=== PATIENT | male | born 1990 | race Caucasian/White ===

== ENCOUNTER 2025-07-14 14:05 | Inpatient (IN) | payer MEDICAID ==
[~2025-07-14] VITALS: Ht 182.9 cm; Wt 62.3 kg
[2025-07-14 02:00] VITALS: RESP 19; O2SAT 99
[~2025-07-14 14:05] MED LIST: LEVE-21 PO; SIN10C PO
--- NOTE | 2025-07-14 14:36 | Physician Documentation ---
History of Present Illness ~ Chief Complaint: ETOH Withdrawl Stated Complaint: ALTERED Time Seen by MD: 14:12 Primary Medical Doctor: adrianna MARTINEZ 35-year-old male, history of alcohol abuse, who presents with altered mental status Per EMS, the patient arrives from home. His sister called because she was worried about him. When they found him he seemed confused. They thought maybe he was hallucinating. He has a history of alcohol abuse and has not had access to alcohol recently. He also has been reportedly out of his Keppra for 1 week. Here in the ED, the patient reports feeling generally weak and unwell. He denies having a headache, chest pain, shortness of breath, abdominal pain. He does not feel like he is withdrawing hard from alcohol. Unknown last drink. He has multiple wounds on his extremities. Medication Reconciliation Allergies: Coded Allergies: No Known Allergies (Unverified , 07/06/13) Scheduled Doxepin Hcl* (Sinequan*), 1 CAP PO HS, (Reported) Levetiracetam (Levetiracetam), 3 TAB PO BID, (Reported) Past Medical History Past Medical History: Seizures, Chronic Pain Past Surgical History: orthopedic surgeries Alcohol Use: Abuse Drug Use: marijuana Review of Systems Unable to obtain complete ROS: altered mental status Physical Exam Vital Signs: Temperature: 99.3, Source: Oral, Heart Rate: 94, Respiratory Rate: 16, BP: 117/71, Pulse Oximetry: 99, Weight: 62.300 Physical Exam General: This is a thin chronically ill-appearing young man HEENT: Atraumatic, oropharynx appears dry, he does have tongue fasciculations Heart: Regular rate and rhythm, normal-appearing peripheral perfusion Lungs: Clear breath sounds bilateral, normal work of breathing Abdomen: Soft, nondistended, nontender Extremities: Warm and well-perfused Neuro: Alert and oriented self and location, has trouble some history questions Psychiatric: He does have a resting tremor and tongue fasciculations, does not appear to be responding to internal stimuli currently Progress Results/Orders Results/Orders Orders - HERLINDA STOCKTON MD Hospitalist (07/14/25 17:44) Completed Orders - HERLINDA STOCKTON MD Ammonia (07/14/25 14:19) LA (07/14/25 14:19) Lipase (07/14/25 14:19) MG (07/14/25 14:19) Ethanol (07/14/25 14:19) Drug Screen, Urine (07/14/25 14:19) Cbc/Diff (07/14/25 14:19) CMP (07/14/25 14:19) Normal Saline 1000ml (0.9% Sodium Chlori (07/14/25 14:20) Chlordiazepoxide Capsule (Librium Capsul (07/14/25 14:20) Man Diff (07/14/25 14:29) Electrocardiogram (07/14/25 14:15) Diazepam Inj (Valium Inj) (07/14/25 17:30) Normal Saline 1000ml (0.9% Sodium Chlori (07/14/25 17:40) Vital Signs 07/14/25 07/14/25 07/14/25 07/14/25 02:00 14:11 14:51 14:56 Temp 99.3 Pulse 94 96 Resp 19 16 16 12 B/P (MAP) 117/71 124/68 (86) Pulse Ox 99 99 98 O2 Delivery Room Air 07/14/25 07/14/25 07/14/25 07/14/25 15:36 17:15 17:30 18:18 Pulse 94 84 Resp 14 15 20 14 B/P (MAP) 128/84 (99) 139/93 (108) Pulse Ox 99 100 07/14/25 07/14/25 18:33 19:07 Pulse 98 Resp 19 21 B/P (MAP) 100/68 (79) Pulse Ox 99 Laboratory Tests Test 07/14/25 14:29 White Blood Count 2.9 L Red Blood Count 2.77 L Hemoglobin 8.9 L Hematocrit 26.7 L Mean Corpuscular Volume 96.4 Mean Corpuscular Hemoglobin 32.1 H Mean Corpuscular Hemoglobin Concent 33.4 Red Cell Distribution Width 13.8 Platelet Count 100 L Mean Platelet Volume 7.9 Neutrophils (%) (Auto) 72.5 Lymphocytes (%) (Auto) 12.8 L Monocytes (%) (Auto) 14.4 H Eosinophils (%) (Auto) 0.1 Basophils (%) (Auto) 0.2 Neutrophils # (Auto) 2.1 Lymphocytes # (Auto) 0.4 L Monocytes # (Auto) 0.4 Eosinophils # (Auto) 0.0 Basophils # (Auto) 0.0 CBC Comment Differential Total Cells Counted 100 Neutrophils % (Manual) 73.0 Lymphocytes % (Manual) 12.0 L Monocytes % (Manual) 13.0 H Eosinophils % (Manual) 2.0 Platelet Estimate Decreased Red Blood Cell Morphology Perf Poikilocytosis Few Basophilic Stippling Macrocytosis 1+ Sodium Level 138 Potassium Level 3.3 L Chloride Level 106 Carbon Dioxide Level 26.3 Anion Gap 6 L Blood Urea Nitrogen 10 Creatinine 0.80 Estimated GFR/1.73 m2 > 90 BUN/Creatinine Ratio 12.5 Glucose Level 87 Lactic Acid Level 1.4 Calcium Level 8.2 L Magnesium Level 1.7 Total Bilirubin 2.6 H Aspartate Amino Transf (AST/SGOT) 71 H Alanine Aminotransferase (ALT/SGPT) 27 Alkaline Phosphatase 89 Ammonia 19 Total Protein 7.2 Albumin 2.7 L Globulin 4.5 H Albumin/Globulin Ratio 0.6 L Lipase 25 Chemistry Comments Ethyl Alcohol Level < 10 Medical Decision Making Differential Dx:Considerations: Include: dehydration, Delirium Tr., encephalopathy, postictal, drug overdose, encephalopathy, ETOH intoxication, medication toxicity, renal failure Additional Information The patient presents with reported altered mental status and weakness, with a possible history of alcohol withdrawal or other substance use. His alcohol level is negative and he does have symptoms consistent with alcohol withdrawal. He was given IV fluids, Librium and Valium. Urine drug screen is pending. He will require admission for further care. Departure Impression: Primary Impression: Alcohol withdrawal syndrome Referrals: NO PRIMARY CARE PROVIDER (PCP) Signature Scribe Signature: cheri Attestation: HERLINDA Randolph MD Jul 14, 2025 14:36
[2025-07-14 14:38] LABS: MEAN PLATELET VOLUME 7.9 FL (7.4-10.4); RED CELL DISTRIBUTION WIDTH 13.8 % (11.5-14.5)
--- NOTE | 2025-07-14 14:44 | ELECTROCARDIOGRAPH REPORT ---
[facility] Test Date: 2025-07-14 Test Time: 14:15:22 Pat Name: CHARLIE HOFFMAN Department: EMERGENCY ROOM Room: [place] [address] Gender: M Tax Professional: GERALDINE : 1990 Requested By: HERLINDA STOCKTON Order Number: [id number] Reading MD: Dr. Boo Arenas Measurements Intervals [place] Rate: 92 P: 92 PA: 138 QRS: 44 QRSD: 85 T: 69 QT: 371 QTc: 459 Interpretive Statements Pacemaker spikes or artifacts Sinus rhythm Abnormal R-wave progression, early transition Electronically Signed On 07-18-2025 19:21:[address] Boo Areans Please click the below link to view image of tracing.
[2025-07-14 14:54] LABS: EOSINOPHILS % (MANUAL) 2.0 % (0-6); LYMPHOCYTES % (MANUAL) 12.0 % (21-51); MONOCYTES % (MANUAL) 13.0 % (2-12); NEUTROPHILS % (MANUAL) 73.0 % (42-75); PLATELET ESTIMATE DECREASED
[2025-07-14 14:55] LABS: CREATININE 0.80 MG/DL (0.60-1.10); ETHANOL < 10 MG/DL (<10); TOTAL CARBON DIOXIDE 26.3 MMOL/L (24-32); eCRCL 111 ML/MIN; eGFR > 90 ML/MIN
[2025-07-14 14:58] LABS: LACTIC SEPSIS 1.4 MMOL/L (0.4-2.0)
[2025-07-14] MEDS: normal saline 1000ml 1,000 ML IV ONE ×2 (15:35→17:46)
[2025-07-14] MEDS: diazepam inj 5 MG/ML inj. IV ONE (17:30)
[2025-07-14] MEDS ORDERED: diazepam inj 5 MG/ML inj. IV PRN ×4 (19:00→20:10)
[2025-07-14] MEDS ORDERED: ondansetron/PF 4mg/2ml inj IV PRN ×3 (19:00→20:10)
[2025-07-14] MEDS ORDERED: magnesium Cl slow-release 64mg tablet PO PRN (19:10)
[2025-07-14] MEDS ORDERED: potassium Cl 40MEQ/1/2NS 520ml 520 ML IV PRN (19:10)
[2025-07-14] MEDS ORDERED: mag hydrox/Alum hydrox/simeth 30ml oral suspension PO PRN (19:10)
[2025-07-14] MEDS ORDERED: magnesium sulf-water 4G/100mL 100 ML IV PRN (19:10)
[2025-07-14] MEDS ORDERED: magnesium sulf-water 2g/50mL 50 ML IV PRN (19:10)
[2025-07-14] MEDS ORDERED: potassium Cl 20 mEq SR tablet PO PRN (19:10)
[2025-07-14] MEDS ORDERED: magnesium hydroxide 30ml (MOM) UD suspension PO PRN (19:10)
[2025-07-14] MEDS ORDERED: HYDROcodone/acetaminophen 5mg/325mg tablet PO PRN (19:10)
[2025-07-14] MEDS: diazepam inj 5 MG/ML inj. IV PRN (19:38)
[2025-07-14] MEDS ORDERED: MIDAZolam 5mg/ml 2ml vial IM ONE (20:00)
[2025-07-14] MEDS: docusate sod 100mg capsule PO SCH (20:00)
[2025-07-14] MEDS: K and/or MAG REPLACEMENT MC SCH (20:00)
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
[2025-07-14] MEDS: normal saline 1000ml 1,000 ML IV SCH (20:10)
[2025-07-14] MEDS ORDERED: ondansetron 4mg rapidly disintigrating tab PO PRN (20:10)
[2025-07-14] MEDS: MIDAZolam 5mg/ml 2ml vial IV ONE (20:10)
[2025-07-14] MEDS ORDERED: thiamine 100mg/ml 2ml inj. IV SCH (21:00)
[2025-07-14] MEDS ORDERED: morphine 4 MG/ML inj SYRINge IV PRN (21:24)
[2025-07-14] MEDS: thiamine 100mg/ml 2ml inj. IV SCH (21:42)
[2025-07-15] VITALS (10 sets, daily range): BP systolic 121–141; BP diastolic 54–83; PULSE 70–83; RESP 14–19; TEMP 96.8–99.9; O2SAT 97–100
[2025-07-15] MEDS ORDERED: PHENOBARBITAL SODIUM 65 MG/ML IV PRN (01:31)
[2025-07-15] MEDS: morphine 4 MG/ML inj SYRINge IV PRN (02:49)
[2025-07-15 05:40] LABS: LEUKOCYTE ESTERASE ,URINE NEGATIVE (Neg); OCCULT BLOOD,URINE LARGE (Neg)
[2025-07-15 05:45] LABS: UA COLLECTION TYPE NON-SPECIFIED
[2025-07-15 05:46] LABS: NITRITES, URINE NEGATIVE (Neg); SQUAMOUS EPITHELIAL CELL,UR NONE SEEN /LPF (FEW)
[2025-07-15 06:04] LABS: URINE AMPHETAMINE SCREEN NEGATIVE (Neg); URINE BARBITUATE SCREEN POSITIVE (Neg); URINE BENZODIAZEPINES SCREEN POSITIVE (Neg); URINE CANNABINOID SCREEN POSITIVE (Neg); URINE COCAINE SCREEN NEGATIVE (Neg); URINE METHADONE SCREEN NEGATIVE (Neg); URINE OPIATE SCREEN NEGATIVE (Neg); URINE PHENCYCLIDINE SCREEN NEGATIVE (Neg)
[2025-07-15] MEDS: folic acid 1mg/0.2ml inj IV SCH (07:42)
[2025-07-15 07:59] LABS: MEAN PLATELET VOLUME 8.0 FL (7.4-10.4); RED CELL DISTRIBUTION WIDTH 13.9 % (11.5-14.5)
[2025-07-15] MEDS ORDERED: folic acid 1mg/0.2ml inj IV SCH (08:00)
[2025-07-15] MEDS: diazepam inj 5 MG/ML inj. IV PRN (08:27)
[2025-07-15 09:03] LABS: EOSINOPHILS % (MANUAL) 2.0 % (0-6); LYMPHOCYTES % (MANUAL) 19.0 % (21-51); MONOCYTES % (MANUAL) 15.0 % (2-12); NEUTROPHILS % (MANUAL) 64.0 % (42-75); PLATELET ESTIMATE DECREASED
[2025-07-15 09:46] LABS: MEAN PLATELET VOLUME 8.7 FL (7.4-10.4); RED CELL DISTRIBUTION WIDTH 14.1 % (11.5-14.5)
[2025-07-15 10:01] LABS: CREATININE 0.44 MG/DL (0.60-1.10); TOTAL CARBON DIOXIDE 22.7 MMOL/L (24-32); eCRCL 203 ML/MIN; eGFR > 90 ML/MIN
[2025-07-15 10:09] LABS: EOSINOPHILS % (MANUAL) 2.0 % (0-6); LYMPHOCYTES % (MANUAL) 19.0 % (21-51); MONOCYTES % (MANUAL) 14.0 % (2-12); NEUTROPHILS % (MANUAL) 65.0 % (42-75); PLATELET ESTIMATE DECREASED
[2025-07-15] MEDS: potassium Cl 20 mEq SR tablet PO PRN (11:38)
--- NOTE | 2025-07-15 18:21 | CARDIOLOGY REPORT ---
APPROVED REPORT EXAM: Comprehensive 2D, Doppler, and color-flow Echocardiogram. Patient Location: 3018 A Heart Rate: 70's bpm Rhythm: SINUS Indications CARDIOMYOPATHY ETOH SEVERE ALCOHOL WITHDRAWL Meal Packer: NONE Previous echo: NONE 2D Dimensions RVDd 3.6 cm LVDd 4.9 cm LVOT Diameter 2.19 (1.8-2.4cm) M-Mode Dimensions Left Atrium(MM) 4.16 (2.5-4.0cm) Aortic Root 3.57 (2.2-3.7cm) Aortic Valve AoV Peak Amor. 145.0 cm/s AoV VTI 29.2 cm AO Peak GR. 8.4 mmHg AO Mean GR. 4 mmHg LVOT VTI 21.30 cm LVOT Peak Amor. 114.0 cm/s CORINNE(VTI)/BSA 2.74 cm2/m2 CORINNE (VTI) 2.74 cm2 Mitral Valve MV E Velocity 91.4 cm/s MV Peak Gr. 4 mmHg MV DECEL TIME 224 ms MV A Velocity 70.4 cm/s MV PHT 56 ms E/A Ratio 1.3 MVA (PHT) 3.93 cm2 MV VMax 105.7 cm/s TDI Lateral E' P. V 12.05 cm/s E/Lateral E' 7.6 Tricuspid Valve TR P. Velocity 203 cm/s RAP ESTIMATE 10 mmHg TR Peak Gr. 16 mmHg RVSP 26 mmHg LEFT VENTRICLE Normal LV size and wall thickness. Overall systolic function is normal. LVEF is 60-65%. RIGHT VENTRICLE RV is mildly dilated with normal function. ATRIA Left atrium is mildly dilated. AORTIC VALVE Trileaflet AV appears normal without stenosis. No insufficiency. MITRAL VALVE Mild MV annular calcification without stenosis. Trace regurgitation. TRICUSPID VALVE TV appears structurally normal with trace regurgitation. PULMONIC VALVE Pulmonic valve is not well visualized. GREAT VESSELS The aortic root is normal in size. PERICARDIUM Normal pericardium. No effusion. Other Information Study Quality: Adequate but difficult due to patient unresponsive, supine, and poor imaging windows Conclusion Normal LV size and wall thickness. Overall systolic function is normal. LVEF is 60-65%. RV is mildly dilated with normal function. Left atrium is mildly dilated. Trileaflet AV appears normal without stenosis. No insufficiency. Mild MV annular calcification without stenosis. Trace regurgitation. TV appears structurally normal with trace regurgitation. Normal pericardium. No effusion.
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
[2025-07-15] MEDS: HYDROcodone/acetaminophen 10/325mg tab PO PRN (23:01)
[2025-07-16] VITALS (7 sets, daily range): BP systolic 101–137; BP diastolic 56–83; PULSE 77–82; RESP 11–19; TEMP 96.6–97.3; O2SAT 94–100
[2025-07-16] MEDS ORDERED: METH-603 PO (00:17)
[2025-07-16] MEDS ORDERED: LEVO-65 PO (00:21)
[2025-07-16 06:33] LABS: MEAN PLATELET VOLUME 8.0 FL (7.4-10.4); RED CELL DISTRIBUTION WIDTH 14.0 % (11.5-14.5)
[2025-07-16 06:55] LABS: CREATININE 0.47 MG/DL (0.60-1.10); TOTAL CARBON DIOXIDE 23.1 MMOL/L (24-32); eCRCL 190 ML/MIN; eGFR > 90 ML/MIN
[2025-07-16 07:14] LABS: LYMPHOCYTES % (MANUAL) 20.0 % (21-51); MONOCYTES % (MANUAL) 10.0 % (2-12); NEUTROPHILS % (MANUAL) 70.0 % (42-75); PLATELET ESTIMATE DECREASED
--- NOTE | 2025-07-16 09:06 | RADIOLOGY REPORT ---
INDICATION: history of cirohsis TECHNIQUE: Multiple real-time sonographic images of the abdomen were obtained. COMPARISON: None FINDINGS: The liver is heterogeneous in echogenicity. The liver measures 16cm. No intrahepatic biliary ductal dilatation is noted. The gallbladder wall measures 0.2 cm and is unremarkable. No gallstones or sludge is seen. The common duct measures 0.5 cm and is unremarkable. No pericholecystic fluid is noted. The right kidney measures 11cm. No hydronephrosis. The pancreas is not well visualized due to obscuration from bowel gas. The visualized portions of the IVC and aorta are grossly unremarkable. IMPRESSION: Hepatic cirrhosis with small volume ascites.
--- NOTE | 2025-07-16 10:17 | RADIOLOGY REPORT ---
CHEST RADIOGRAPH Indication: rule out aspiration Technique: Single frontal view of the chest was obtained Comparison: None FINDINGS: Lines and Tubes: None Lungs: No focal consolidation. Pleura: No effusion. No pneumothorax. Cardiomediastinal contours: Unremarkable Bones: No acute osseous abnormality. IMPRESSION: No acute cardiopulmonary disease.
[2025-07-16 11:58] LABS: APTT 27 SECONDS (22-32); INR 1.4 INR
--- NOTE | 2025-07-16 12:17 | RADIOLOGY REPORT ---
Indication: patient has cirhosis Technique: CT axial images of the abdomen and pelvis are obtained without contrast. Coronal and sagittal reformats were obtained. Radiation Dose Information: CTDI volume is 8 mGy. Dose-length product is 459 mGy*cm Comparison: None FINDINGS: There is limited interpretation of the abdomen and pelvis without administration of intravenous contrast. Small bilateral pleural effusions. Bibasilar atelectasis. Adrenal glands unremarkable in shape. Spleen is enlarged measuring 16 cm AP. Pancreas unremarkable in shape. Cirrhotic morphology liver. Cholelithiasis. Heterogeneous appearance of the liver. Kidneys demonstrate no hydronephrosis. Stomach partially distended. Small bowel loops are normal in caliber. Moderate volume stool throughout the colon. Bowel wall edema and thickening of the ascending colon, hepatic flexure. No secondary signs for appendicitis. Numerous pericaval, gastro renal varices, perisplenic varices. Bladder is decompressed by Gandhi catheter. Moderate volume ascites fluid. Mesenteric edema. Presacral edema. Soft tissue edema / anasarca. No aggressive osseous process. Old bilateral rib fractures.. Ecos-ho-whugwtyi thoracic degenerative disc disease. Heterotopic mineralization in the proximal right thigh region. IMPRESSION: Limited evaluation without contrast. Cirrhotic morphology liver with sequela of portal hypertension including splenomegaly, moderate volume ascites, extensive portosystemic collateralization. Heterogeneous appearance of the liver. Can not exclude infiltrative HCC /hilar lesions. Recommend multiphasic MRI abdomen with and without contrast and correlation with alpha fetoprotein levels. Bowel wall thickening and edema of the ascending colon which can be secondary to portal hypertension related enteropathy, colitis, inflammatory disease. Small bilateral pleural effusions. Cholelithiasis. Other findings as described.
--- NOTE | 2025-07-16 13:06 | PROGRESS NOTE- Residence ---
Progress Note - Resident Providers to CC Resident Creating Document: LEONIDAS LEWIS RES CC: PEDRO PABLO BANKS MD ~ Antibiotic Timeout Antibiotic Ordered?: No Subjective Patient was seen and examined on bedside, he is now alert and oriented to time place and person, and is normally eating , reports that he is feeling better. Objective Vital Signs Date Time Temp Pulse Resp B/P (MAP) Pulse Ox O2 Delivery O2 Flow Rate FiO2 07/16/25 11:00 96.6 82 13 104/64 (77) 94 07/16/25 08:00 Room Air Result Diagram: 07/16/25 0607/16/25 06 General: Patient is alert, oritentated to time place and person. GCS: 15/15 HEENT: Conjunctive are pink, sclerae clear, no icterus, pupil is equal in both sides, reactive to light, no ear discharge, no pharyngeal erythema or an edema.abrasion noted in left eyebrow and and left zygomatic area Neck: Supple, no JVD, no lymphadenopathy and thyromegaly. Chest: Equal air entry on both lungs, no added sounds, no wheeze. Cardiovascular: S1-S2 regular sinus rhythm and, regular rate, no gallops, no rubs, no murmurs Abdomen: Bowel sounds present on auscultation, soft, nontender, no guarding, no rigidity Extremities: Multiple abrasion in bilateral lower extremities, and upper extremities. The abrasions look healthy, healing. No pus/no other discharge. Neuro: No focal weaknesenders in the upper and lower limb muscles, power of the muscles 5/5 bilateral upper and lower extremities, normal reflexes bilaterally. Cranial nerves intact Musculoskeletal: No joint deformitites and backtenderness Skin: Warm and dry. Coagulation Studies Laboratory Tests Test 07/16/25 11:28 Prothrombin Time 13.9 SECONDS (9.0-12.0) H INR International Normalized Ratio 1.4 INR Activated Partial Thromboplast Time 27 SECONDS (22-32) Coagulation Comments Plan Plan Patient presented here with severe alcohol withdrawl, admitted for management of alcohol withdrawl. Severe Alcohol Withdrawl CIWA score of 1 Ethyl alcohol level < 10 Received 1 dose of phenobarbital 260 mg IV push in the ER along with chlordiazepoxide 25 mg p.o. once and diazepam 2 mg IV once. Patient on librium capsule 25 mg Q6H PO Patient is on severe alcohol withdrawal protocol Dced Phenobarbital 260 mg IV push q.1h p.r.n changed it to 130 mg IV q1h prn Patient will require frequent dosing of phenobarbital/Valium/Ativan to prevent seizure He received 2 L bolus IV normal saline in the ER. Hydration with 100 mL/hour in his in view of soft blood pressure Urinalysis shows large occult blood and urine tox positive for fentanyl, on fall risk and aspiration precautions. Patient was on foleys yestraday because he was retaining urine, bladder scan showed around 600 ml, dced foleys as he is able to void by himself. Social service and substance use navigator ordered. Suicidal Ideation Continue 1798 [facility] need to assess patient. Pancytopenia most likely due to alcohol use disorder WBC 2.2, hemoglobin 9.1, platelet count trending downward 79 Ordered type and cross matching. Blood transfusion if hemoglobin falls below 7. Keep an on eye CBC. Chronic Liver Disease/Cirhosis Ct Abdomen and Pelvis shows: Cirrhotic morphology liver with sequela of portal hypertension including splenomegaly, moderate volume ascites, extensive portosystemic collateralization. Heterogeneous appearance of the liver. Can not exclude infiltrative HCC /hilar lesions. Recommend multiphasic MRI abdomen with and without contrast and correlation with alpha fetoprotein levels. Bowel wall thickening and edema of the ascending colon which can be secondary to portal hypertension related enteropathy, colitis, inflammatory disease. Small bilateral pleural effusions. Cholelithiasis. Continue to monitor liver function ,and check for hemetemesis or melena. Hypokalemia Resolved Potassium 3.5 Code status: Full code DVT prophylaxis: SCDs Analgesia/sedation: Morphine/[place] p.r.n. Line/tube: PIV GI prophylaxis: Protonix Nutrition: Regular Diet PT: Ordered. Disposition: Admit to PCU/telemetry. Frequent dosing of phenobarbital/Valium/Ativan to prevent seizures. [address], needs to renewed daily until [facility] clears. Patient is medically cleared for [facility] Evaluation for 515 Hold. Leonidas Lewis PGY1 Internal Medicine Resident Addendum: Patient is a 35-year-old male admitted for severe alcohol withdrawal, currently on the alcohol withdrawal protocol. Has been requiring less sedative medications and he is fall awake and alert now. He had the CT of the abdomen done shows cirrhotic liver with portal hypertension and splenomegaly. He also has moderate volume ascites with extensive portosystemic collateralization. Unable to exclude HCC/hilar lesions. If he will benefit from outpatient follow up for workup of possible malignancy with the AFP and MRI/PET scan. He was also retaining room urine and had the Gandhi placed. We will discontinue Gandhi catheter today and monitor if he is able to void by himself. He is cleared medical, awaiting mental health eval. Renewed 1799 hold. Tammy Kim MD IM resident, PGY 3 Date of Service: Jul 16, 2025 Billing Provider: PEDRO PABLO BANKS MD, SANJAY, RES Jul 16, 2025 13:06 TAMMY KIM, RES Jul 17, 2025 08:06
[2025-07-17] VITALS (7 sets, daily range): BP systolic 100–151; BP diastolic 56–89; PULSE 87–105; RESP 11–20; TEMP 97.3–99.3; O2SAT 98–100
[2025-07-17 06:05] LABS: MEAN PLATELET VOLUME 8.4 FL (7.4-10.4); RED CELL DISTRIBUTION WIDTH 13.5 % (11.5-14.5)
[2025-07-17 06:32] LABS: CREATININE 0.55 MG/DL (0.60-1.10); TOTAL CARBON DIOXIDE 23.9 MMOL/L (24-32); eCRCL 162 ML/MIN; eGFR > 90 ML/MIN
[2025-07-17 08:18] LABS: LYMPHOCYTES % (MANUAL) 12.0 % (21-51); MONOCYTES % (MANUAL) 10.0 % (2-12); NEUTROPHILS % (MANUAL) 78.0 % (42-75); PLATELET ESTIMATE DECREASED
[2025-07-17 12:16] LABS: LEUKOCYTE ESTERASE ,URINE NEGATIVE (Neg); NITRITES, URINE POSITIVE (Neg); OCCULT BLOOD,URINE SMALL (Neg); UA COLLECTION TYPE NON-SPECIFIED
[2025-07-17 12:25] LABS: SQUAMOUS EPITHELIAL CELL,UR NONE SEEN /LPF (FEW)
--- NOTE | 2025-07-17 21:01 | PROGRESS NOTE- Residence ---
Progress Note - Resident Providers to CC Resident Creating Document: MELISSA BHARDWAJ RES CC: PEDRO PABLO BANKS MD ~ Antibiotic Timeout Antibiotic Ordered?: No MRSA Education MRSA Education Provided to pt: No Subjective Patient was seen and examined on bedside, he is now alert and oriented to time place and person, and is normally eating , reports that he is feeling better. He says that he is much better since admission Objective Vital Signs Date Time Temp Pulse Resp B/P (MAP) Pulse Ox O2 Delivery O2 Flow Rate FiO2 07/17/25 19:50 20 07/17/25 18:30 103 07/17/25 15:00 97.7 151/89 (109) 98 Room Air Result Diagram: 07/17/25 0544 07/17/25 0544 General: Patient is alert, oritentated to time place and person. GCS: 15/15 HEENT: Conjunctive are pink, sclerae clear, no icterus, pupil is equal in both sides, reactive to light, no ear discharge, no pharyngeal erythema or an edema.abrasion noted in left eyebrow and and left zygomatic area Neck: Supple, no JVD, no lymphadenopathy and thyromegaly. Chest: Equal air entry on both lungs, no added sounds, no wheeze. Cardiovascular: S1-S2 regular sinus rhythm and, regular rate, no gallops, no rubs, no murmurs Abdomen: Bowel sounds present on auscultation, soft, nontender, no guarding, no rigidity Extremities: Multiple abrasion in bilateral lower extremities, and upper extremities. The abrasions look healthy, healing. No pus/no other discharge. Neuro: No focal weaknesenders in the upper and lower limb muscles, power of the muscles 5/5 bilateral upper and lower extremities, normal reflexes bilaterally. Cranial nerves intact Musculoskeletal: No joint deformitites and backtenderness Skin: Warm and dry. Coagulation Studies Laboratory Tests Test 07/16/25 11:28 Prothrombin Time 13.9 SECONDS (9.0-12.0) H INR International Normalized Ratio 1.4 INR Activated Partial Thromboplast Time 27 SECONDS (22-32) Coagulation Comments Plan Plan Patient presented here with severe alcohol withdrawl, admitted for management of alcohol withdrawl. Severe Alcohol Withdrawl CIWA score of 1 Ethyl alcohol level < 10 Received 1 dose of phenobarbital 260 mg IV push in the ER along with chlordiazepoxide 25 mg p.o. once and diazepam 2 mg IV once. Patient on librium capsule 25 mg Q6H PO Patient is on severe alcohol withdrawal protocol Dced Phenobarbital 260 mg IV push q.1h p.r.n changed it to 130 mg IV q1h prn Patient will require frequent dosing of phenobarbital/Valium/Ativan to prevent seizure He received 2 L bolus IV normal saline in the ER. Hydration with 100 mL/hour in his in view of soft blood pressure Urinalysis shows large occult blood and urine tox positive for fentanyl, on fall risk and aspiration precautions. Patient was on foleys yestraday because he was retaining urine, bladder scan showed around 600 ml, dced foleys as he is able to void by himself. Social service and substance use navigator ordered. Suicidal Ideation Continue 1798, [facility] need to assess patient. Pancytopenia most likely due to alcohol use disorder WBC 2.7 , hemoglobin 10.2, platelet count trending upward 90 Ordered type and cross matching. Blood transfusion if hemoglobin falls below 7. Keep an on eye CBC. Chronic Liver Disease/Cirhosis Ct Abdomen and Pelvis shows: Cirrhotic morphology liver with sequela of portal hypertension including splenomegaly, moderate volume ascites, extensive portosystemic collateralization. Heterogeneous appearance of the liver. Can not exclude infiltrative HCC /hilar lesions. Recommend multiphasic MRI abdomen with and without contrast and correlation with alpha fetoprotein levels. Bowel wall thickening and edema of the ascending colon which can be secondary to portal hypertension related enteropathy, colitis, inflammatory disease. Small bilateral pleural effusions. Cholelithiasis. Continue to monitor liver function ,and check for hemetemesis or melena. Hep Bsag awaiting, follow up with that Hypokalemia Resolved Potassium 3.5 Code status: Full code DVT prophylaxis: SCDs Analgesia/sedation: Morphine/[place] p.r.n. Line/tube: PIV GI prophylaxis: Protonix Nutrition: Regular Diet PT: Ordered. Disposition: Admit to PCU/telemetry. Frequent dosing of phenobarbital/Valium/Ativan to prevent seizures. [address], needs to renewed daily until [facility] clears. Patient is medically cleared for [facility] Evaluation for 5151 Hold. Melissa Bhardwaj PGY1 Internal Medicine Resident Date of Service: Jul 17, 2025 Billing Provider: PEDRO PABLO BANKS MD, SANJAY, RES Jul 17, 2025 21:01
[2025-07-18] VITALS (7 sets, daily range): BP systolic 104–149; BP diastolic 52–87; PULSE 67–102; RESP 11–18; TEMP 97.2–97.9; O2SAT 95–99
[2025-07-18 06:47] LABS: MEAN PLATELET VOLUME 8.2 FL (7.4-10.4); RED CELL DISTRIBUTION WIDTH 14.3 % (11.5-14.5)
[2025-07-18 06:51] LABS: CREATININE 0.51 MG/DL (0.60-1.10); TOTAL CARBON DIOXIDE 24.3 MMOL/L (24-32); eCRCL 175 ML/MIN; eGFR > 90 ML/MIN
[2025-07-18] MEDS: pantoprazole 40mg Tablet.DR PO SCH (08:19)
[2025-07-18] MEDS ORDERED: magnesium sulf-water 2g/50mL 50 ML IV PRN (12:25)
[2025-07-18] MEDS ORDERED: potassium Cl 40MEQ/1/2NS 520ml 520 ML IV PRN (12:25)
[2025-07-18] MEDS ORDERED: magnesium sulf-water 4G/100mL 100 ML IV PRN (12:25)
[2025-07-18] MEDS ORDERED: potassium Cl 20 mEq SR tablet PO PRN ×2 (12:25)
[2025-07-18] MEDS: magnesium Cl slow-release 64mg tablet PO PRN (12:38)
[2025-07-18] MEDS: multivitamins, therapeutics tablet PO SCH (12:49)
[2025-07-18] MEDS: lactose-reduced food (Ensure Enlive) - 237ml bottle PO SCH (13:00)
[2025-07-18] MEDS: K and/or MAG REPLACEMENT MC SCH (20:00)
--- NOTE | 2025-07-18 20:32 | PROGRESS NOTE- Residence ---
Progress Note - Resident Providers to CC Resident Creating Document: LEONIDAS BHARDWAJ RES CC: PEDRO PABLO BANKS MD ~ Antibiotic Timeout Antibiotic Ordered?: No Subjective Patient was seen and examined on bedside, he is now alert and oriented to time place and person, and is normally eating , reports that he is feeling better. He said that he is much better he also mentions that he is homeless. Objective Vital Signs Date Time Temp Pulse Resp B/P (MAP) Pulse Ox O2 Delivery O2 Flow Rate FiO2 07/18/25 20:22 18 07/18/25 18:00 89 07/18/25 15:00 97.3 149/87 (107) 99 Room Air Result Diagram: 07/18/2562007/18/25 06 General: Patient is alert, oritentated to time place and person. GCS: 15/15 HEENT: Conjunctive are pink, sclerae clear, no icterus, pupil is equal in both sides, reactive to light, no ear discharge, no pharyngeal erythema or an edema.abrasion noted in left eyebrow and and left zygomatic area Neck: Supple, no JVD, no lymphadenopathy and thyromegaly. Chest: Equal air entry on both lungs, no added sounds, no wheeze. Cardiovascular: S1-S2 regular sinus rhythm and, regular rate, no gallops, no rubs, no murmurs Abdomen: Bowel sounds present on auscultation, soft, nontender, no guarding, no rigidity Extremities: Multiple abrasion in bilateral lower extremities, and upper extremities. The abrasions healing. No pus/no other discharge. Neuro: No focal weaknesenders in the upper and lower limb muscles, power of the muscles 5/5 bilateral upper and lower extremities, normal reflexes bilaterally. Cranial nerves intact Musculoskeletal: No joint deformitites and backtenderness Skin: Warm and dry. Coagulation Studies Laboratory Tests Test 07/16/25 11:28 Prothrombin Time 13.9 SECONDS (9.0-12.0) H INR International Normalized Ratio 1.4 INR Activated Partial Thromboplast Time 27 SECONDS (22-32) Coagulation Comments Plan Plan Patient presented here with severe alcohol withdrawl, admitted for management of alcohol withdrawl. Severe Alcohol Withdrawl CIWA score of 1 Ethyl alcohol level < 10 Received 1 dose of phenobarbital 260 mg IV push in the ER along with chlordiazepoxide 25 mg p.o. once and diazepam 2 mg IV once. Patient on librium capsule 25 mg Q6H PO, reduced it to 25 mg b.i.d as patient was sleepy. Patient is on severe alcohol withdrawal protocol Dced Phenobarbital 260 mg IV push q.1h p.r.n changed it to 130 mg IV q1h prn Patient will require frequent dosing of phenobarbital/Valium/Ativan to prevent seizure He received 2 L bolus IV normal saline in the ER. Hydration with 100 mL/hour in his in view of soft blood pressure Urinalysis shows large occult blood and urine tox positive for fentanyl, on fall risk and aspiration precautions. Patient was on foleys yestraday because he was retaining urine, bladder scan showed around 600 ml, dced foleys as he is able to void by himself. Started patient on D5W half NS ,ensure t.i.d multivitamin and thiamine p.o. Social service and substance use navigator ordered. Suicidal Ideation Continue 1798, [facility] need to assess patient. Pancytopenia most likely due to alcohol use disorder WBC 3.6 , hemoglobin 9.2, hct 27.3 platelet count trending upward 90 Ordered type and cross matching. Blood transfusion if hemoglobin falls below 7. Keep an on eye CBC. Asymptomatic UTI Patient denies any urinary symptoms Urine culture positive for Gram-negative lluvia possibly due to recent Gandhi's Today patient was retaining urine and then voided by himself Chronic Liver Disease/Cirhosis Ct Abdomen and Pelvis shows: Cirrhotic morphology liver with sequela of portal hypertension including splenomegaly, moderate volume ascites, extensive portosystemic collateralization. Heterogeneous appearance of the liver. Can not exclude infiltrative HCC /hilar lesions. Recommend multiphasic MRI abdomen with and without contrast and correlation with alpha fetoprotein levels. Bowel wall thickening and edema of the ascending colon which can be secondary to portal hypertension related enteropathy, colitis, inflammatory disease. Small bilateral pleural effusions. Cholelithiasis. Continue to monitor liver function ,and check for hemetemesis or melena. Hep Bsag awaiting, follow up with that Hypokalemia Resolved Code status: Full code DVT prophylaxis: SCDs Analgesia/sedation: Morphine/[place] p.r.n. Line/tube: PIV GI prophylaxis: Protonix Nutrition: Regular Diet PT: Ordered. Disposition: Admit to PCU/telemetry. Frequent dosing of phenobarbital/Valium/Ativan to prevent seizures. [address], needs to renewed daily until [facility] clears. Patient is medically cleared for [facility] Evaluation for 5151 Hold. Leonidas Bhardwaj PGY1 Internal Medicine Resident Date of Service: Jul 18, 2025 Billing Provider: PEDRO PABLO BANKS MD, SANJAY, RES Jul 18, 2025 20:32
[2025-07-19 05:48] VITALS: BP 114/68; PULSE 87; RESP 20; TEMP 97.9; O2SAT 96
[2025-07-19 06:21] LABS: MEAN PLATELET VOLUME 8.3 FL (7.4-10.4); RED CELL DISTRIBUTION WIDTH 13.9 % (11.5-14.5)
[2025-07-19 06:28] LABS: CREATININE 0.47 MG/DL (0.60-1.10); TOTAL CARBON DIOXIDE 23.8 MMOL/L (24-32); eCRCL 190 ML/MIN; eGFR > 90 ML/MIN
[2025-07-19 07:17] LABS: HBSAG SCREEN Negative (Negative)
[2025-07-19] MEDS ORDERED: CHLO25CA10 PO (12:19)
[2025-07-19] MEDS ORDERED: FOLI1TAB27 PO (12:19)
[2025-07-19] MEDS ORDERED: LACT1CAP26 PO (12:19)
[2025-07-19] MEDS ORDERED: LEVO-65 PO (12:19)
[2025-07-19] MEDS ORDERED: thiamine tablet PO (12:19)
[2025-07-19] MEDS ORDERED: MULT-25 PO (12:19)
[2025-07-19 16:28] VITALS: RESP 15
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
== END 2025-07-19 18:01 | disposition home or self-care (01) | DRG 425 ==
LOC: ER 14:06 → ED HOLD 19:13 → EDBEDREQ 20:34 → PCU 3S 23:20
PROVIDERS: ADMIT Internal Medicine; ATTEND Family Medicine
DX: E87.6 Hypokalemia (principal); D61.818 Other pancytopenia; K74.60 Unspecified cirrhosis of liver; F10.239 Alcohol dependence with withdrawal, unspecified; K76.6 Portal hypertension; K76.89 Other specified diseases of liver; N39.0 Urinary tract infection, site not specified; R45.851 Suicidal ideations; K80.20 Calculus of gallbladder without cholecystitis without obstruction; R16.1 Splenomegaly, not elsewhere classified; Z79.899 Other long term (current) drug therapy
CPT/HCPCS: 36415; 71045; 74176; 76700; 80053; 80305; 80320; 81001; 82140; 82948; 83605; 83690; 83735; 85007; 85025; 85610; 85730; 87077; 87081; 87088; 87186; 87340; 93005; 93306; 96361; 96374; 96375; 97110; 97116; 97162; 97530; 99285; A4314; A4338; A6213; A6590; C1758; G0378; J2060; J2250; J2270; J2470; J2560; J3360; J3411; J3490; J7030; J7040

== ENCOUNTER 2025-09-28 13:51 | Emergency (ER) | payer MEDICAID ==
[~2025-09-28] VITALS: Ht 170.2 cm; Wt 75.3 kg
[~2025-09-28 13:51] MED LIST changes: +CHLO25CA10 PO; +FOLI1TAB27 PO; +LACT1CAP26 PO; +LEVO-65 PO; +METH-603 PO; +MULT-25 PO; +thiamine tablet PO
--- NOTE | 2025-09-28 14:43 | RADIOLOGY REPORT ---
DI KNEE, COMP 4 VW MIN, INDICATION: KNEE PAIN TECHNICAL DATA: Frontal , oblique and lateral views were obtained of the left knee. COMPARISON: None FINDINGS: Distal tibia hardware appears intact. Old fibula fracture noted. Medial, lateral and patellofemoral compartment joint spaces are maintained. Alignment is anatomic. Soft tissues are within normal limits. No joint effusion is demonstrated. IMPRESSION: No acute fracture or dislocation of the right knee.
--- NOTE | 2025-09-28 14:44 | RADIOLOGY REPORT ---
DI HIP UNILATERAL 2-3 VIEWS, INDICATION: HIP PAIN TECHNICAL DATA: Frontal and frog lateral views were obtained of the left hip.] COMPARISON: None FINDINGS: The left hip is normally located. The left hip joint is normally maintained with no marginal osteophytes. No left hip fracture is identified. The left sacroiliac joint appears normal. IMPRESSION: No acute fracture radiographs of the left hip.
[2025-09-28 15:59] LABS: LEUKOCYTE ESTERASE ,URINE NEGATIVE (Neg); NITRITES, URINE NEGATIVE (Neg); OCCULT BLOOD,URINE NEGATIVE (Neg)
[2025-09-28 16:05] LABS: UA COLLECTION TYPE CLN CATCH MIDSTREAM
[2025-09-28 16:06] LABS: CAL OXALATE CRYSTALS FEW /HPF (NEGATIVE); MUCUS STRANDS FEW /LPF (Neg); SQUAMOUS EPITHELIAL CELL,UR FEW /LPF (FEW)
[2025-09-28 16:07] LABS: COARSE GRANULAR CAST 0-3 /LPF (NEGATIVE); FINE GRANULAR CAST 0-3 /LPF (NEGATIVE); URINE AMPHETAMINE SCREEN NEGATIVE (Neg); URINE BARBITUATE SCREEN NEGATIVE (Neg); URINE BENZODIAZEPINES SCREEN NEGATIVE (Neg); URINE CANNABINOID SCREEN POSITIVE (Neg); URINE COCAINE SCREEN NEGATIVE (Neg); URINE METHADONE SCREEN NEGATIVE (Neg); URINE OPIATE SCREEN NEGATIVE (Neg); URINE PHENCYCLIDINE SCREEN NEGATIVE (Neg)
[2025-09-28 16:20] LABS: MEAN PLATELET VOLUME 7.7 FL (7.4-10.4); RED CELL DISTRIBUTION WIDTH 17.4 % (11.5-14.5)
[2025-09-28 16:25] LABS: CREATININE 0.91 MG/DL (0.60-1.10); TOTAL CARBON DIOXIDE 26.8 MMOL/L (24-32); eCRCL 104 ML/MIN; eGFR > 90 ML/MIN
[2025-09-28 17:01] LABS: PLATELET ESTIMATE DECREASED
[2025-09-28 17:02] LABS: ELLIPTOCYTES 2+
--- NOTE | 2025-09-28 17:17 | Physician Documentation ---
History of Present Illness ~ Chief Complaint: Leg Pain Stated Complaint: LEG PAIN Time Seen by MD: 14:24 Primary Medical Doctor: adrianna [facility] Patient is a pleasant 35-year-old male that presents to the emergency department for evaluation of left knee pain left hip pain that is chronic in nature but with some acute progression in the knee. She also reports that he has some additional drainage from an existing chronic wound on his left side. Patient is currently house at the [facility]. His inbound call center representative at the center just wants to rule out new infection or new injury. Patient is also on the following medications doxepin 10 mg 2 caps in the evening gabapentin 300 mg 1 capsule 3 times daily cyclobenzaprine 10 mg as needed for pain or discomfort leave a tour set him 750 mg over 45 and Butrans patch 20 mcg and a 5 mcg to total 25 mcg to be applied once every week. Patient denies any new injuries today although recalls tripping and falling approximately a week ago has a scrape that appears on the anterior surface of the left knee. Patient denies any significant pain is able to ambulate at this time range of motion is intact for patient's baseline. Patient denies fever chills nausea vomiting diarrhea at this time. No other symptoms reported at this time. Tetanus witin 5 years: Yes Medication Reconciliation Allergies: Coded Allergies: No Known Allergies (Unverified , 09/28/25) Scheduled Chlordiazepoxide HCl (Chlordiazepoxide HCl), 25 MG PO BID Doxepin Hcl* (Sinequan*), 1 CAP PO HS, (Reported) Folic Acid* (Folic Acid*), 1 MG PO DAILY Lactobacillus Rhamnosus (Culturelle), 1 CAP PO BID Levetiracetam (Levetiracetam), 3 TAB PO BID, (Reported) Levofloxacin (Levofloxacin), 500 MG PO DAILY Methadone Hcl* (Dolophine*), 60 MG PO TID, (Reported) Multivitamin with Folic Acid (Thera Tablet), 1 EACH PO DAILY [thiamine tablet], 100 MG PO BID Past Medical History Past Medical History: Seizures, Chronic Pain Past Surgical History: orthopedic surgeries Patient History: Patient reports no known family medical history. Alcohol Use: Abuse Drug Use: marijuana Review of Systems ROS As stated above in the HPI, otherwise all systems are reviewed and negative. Physical Exam Vital Signs: Temperature: 99.5, Source: Temporal, Heart Rate: 108, Respiratory Rate: 18, BP: 141/83, Pulse Oximetry: 100, Weight: 75.300 Oxygen Flow Rate: 0 Physical Exam VITALS: Reviewed and as above. GENERAL: Alert, no apparent distress. HEENT: Normocephalic, atraumatic, PERRL, EOMI, dry mucosa, no erythema RESPIRATORY: Lungs clear, normal breath sounds, no respiratory distress. CHEST: No accessory muscle use, no retractions CV: Regular rate, rhythm, no edema, no murmur, No: JVD GI: Soft, non-tender, bowels sounds present, no rebound, guarding, or rigidity BACK: No CVA tenderness, or swelling MUSCULOSKELETAL No deformities, no edema, small abrasion noted to the anterior portion of the left knee. Patient reports this is old. Range of motion in the left knee and left hip are at patient's baseline per patient. No redness swelling warmth or abnormal findings on examination other than a small abrasion noted. Left hip has a small area of drainage patient reports this is chronic for him but has improved over the last several months. Patient reports his provider is aware of this and he has been seen for that. SKIN: Warm and dry, no rash, small area of a healing wound noted on the left hip with serosanguineous drainage small amount. Bandage over the wound patient is being followed by his primary care provider for management of this wound. Drainage does not appear purulent at this time. NEURO: Oriented x4, No motor or sensory deficit PSYCH: Normal mood and affect, no agitation Progress Results/Orders Results/Orders Completed Orders - CLAUDIA DONOHUE Cbc/Diff (09/28/25 15:17) CMP (09/28/25 15:17) Drug Screen, Urine (09/28/25 15:18) Ua W/Microscopic, Cult If Ind (09/28/25 15:29) Vital Signs 09/28/25 14:03 Temp 99.5 Pulse 108 Resp 18 B/P (MAP) 141/83 Pulse Ox 100 O2 Flow Rate 0 Laboratory Tests Test 09/28/25 15:29 09/28/25 15:57 Urine Specimen Description Cln catch midstream Urine Color Yellow Urine Clarity Slightly cloudy Urine pH 7.0 Urine Specific [place] 1.010 Urine Protein Negative Urine Glucose (UA) Negative Urine Ketones Negative Urine Occult Blood Negative Urine Nitrite Negative Urine Bilirubin Negative Urine Urobilinogen 4.0 H Urine Leukocyte Esterase Negative Urine RBC 0-2 Urine WBC 0-4 Urine Squamous Epithelial Cells Few Urine Calcium Oxalate Crystals Few Urine Bacteria Few Urine Fine Granular Casts 0-3 Urine Coarse Granular Casts 0-3 Urine Mucus Few Urine Culture Indicated Not ind Volume Urine Centrifuged 10 ml Urine Comment Urine Opiates Screen Negative Urine Methadone Screen Negative Urine Fentanyl Screen Negative Urine Barbiturates Screen Negative Urine Phencyclidine Screen Negative Urine Amphetamines Screen Negative Urine Benzodiazepines Screen Negative Urine Cocaine Screen Negative Urine Cannabinoids Screen Positive H Drug Screen Comment White Blood Count 3.2 L Red Blood Count 3.05 L Hemoglobin 9.2 L Hematocrit 27.1 L Mean Corpuscular Volume 89.0 Mean Corpuscular Hemoglobin 30.3 Mean Corpuscular Hemoglobin Concent 34.1 Red Cell Distribution Width 17.4 H Platelet Count 88 L Mean Platelet Volume 7.7 Neutrophils (%) (Auto) 66.4 Lymphocytes (%) (Auto) 20.6 L Monocytes (%) (Auto) 11.9 Eosinophils (%) (Auto) 0.9 Basophils (%) (Auto) 0.2 Neutrophils # (Auto) 2.1 Lymphocytes # (Auto) 0.7 L Monocytes # (Auto) 0.4 Eosinophils # (Auto) 0.0 Basophils # (Auto) 0.0 CBC Comment Platelet Estimate Decreased Red Blood Cell Morphology Perf Poikilocytosis 2+ Basophilic Stippling Anisocytosis 1+ Elliptocytes 2+ Schistocytes Few Sodium Level 140 Potassium Level 3.8 Chloride Level 106 Carbon Dioxide Level 26.8 Anion Gap 7 L Blood Urea Nitrogen 6 L Creatinine 0.91 Estimated GFR/1.73 m2 > 90 BUN/Creatinine Ratio 6.6 L Glucose Level 109 H Calcium Level 7.6 L Total Bilirubin 1.0 Aspartate Amino Transf (AST/SGOT) 37 Alanine Aminotransferase (ALT/SGPT) 18 Alkaline Phosphatase 128 H Total Protein 7.2 Albumin 2.3 L Globulin 4.9 H Albumin/Globulin Ratio 0.5 L Chemistry Comments Medical Decision Making Additional information obtaine: other Findings MEDICAL DECISION MAKING - DISCHARGE Chief Complaint: Chronic left knee and left hip pain with acute progression in knee pain and drainage from chronic left-sided wound. History of Present Illness: 35-year-old male resident of [facility] presents to the emergency department at the request of his inbound call center representative for evaluation to rule out new infection or injury. Patient reports chronic left knee and left hip pain with recent acute worsening of knee pain. Additionally, patient has drainage from a chronic wound on his left side. Patient denies new injuries today but recalls tripping and falling approximately one week ago, resulting in a scrape on the anterior surface of the left knee. Current Medications: Doxepin 10 mg, 2 capsules in the evening Gabapentin 300 mg, 1 capsule three times daily Cyclobenzaprine 10 mg as needed for pain or discomfort Levetiracetam 750 mg twice daily Butrans patch 25 mcg (20 mcg + 5 mcg) applied once weekly Number and Complexity of Problems Addressed: Moderate complexity - Multiple problems addressed including: Chronic left knee pain with acute progression: Patient presents with chronic knee pain that has acutely worsened over the past week following a fall. Knee pain affects approximately 25% of adults and requires systematic evaluation including assessment of pain characteristics, mechanical symptoms, and history of trauma. Given the history of fall one week ago with resultant scrape, traumatic etiology was considered. Physical examination revealed no evidence of acute fracture, joint effusion, instability, or inability to bear weight that would require urgent orthopedic referral. The acute progression in the setting of chronic pain and recent minor trauma suggests exacerbation of underlying chronic condition rather than new structural injury. Chronic left hip pain: Patient has ongoing left hip pain. Hip pain evaluation requires consideration of intra-articular pathology such as osteoarthritis, as well as extra-articular causes. Physical examination did not reveal findings suggestive of acute hip pathology requiring immediate intervention. Chronic wound with drainage on left side: Patient has chronic wound with new drainage, raising concern for infection. Diagnosis of wound infection is made clinically and should not be based on wound-surface swabs alone. Signs of localized infection include local warmth, erythema, tenderness, swelling, and purulent discharge, while systemic infection is suggested by fever, chills, leukocytosis, and expanding erythema. Assessment revealed drainage from chronic wound but no signs of systemic infection such as fever or expanding cellulitis. Chronic wounds are common and require evaluation for infection, particularly given the increased risk in patients with limited mobility. History of fall one week ago: Patient sustained minor trauma with scrape to anterior left knee. No evidence of acute fracture or significant structural injury on examination. Amount and Complexity of Data Reviewed: Physical examination performed including inspection, palpation, range of motion assessment, and neurovascular testing of bilateral lower extremities. Wound assessment included documentation of location, size, drainage characteristics, and signs of infection. Given chronic nature of knee and hip pain (greater than six weeks) and absence of acute traumatic findings meeting evidence-based criteria for imaging, radiographic studies were not indicated at this time. Risk of Complications and Management: Moderate risk - Patient management considerations include: Chronic pain management in complex patient: Patient is currently on Butrans patch 25 mcg weekly for chronic pain management. Important drug interaction c onsiderations exist with current medication regimen. Concomitant use of Butrans with cyclobenzaprine (muscle relaxant) may enhance neuromuscular blocking action and produce increased respiratory depression. Additionally, the combination of Butrans with gabapentin and doxepin requires monitoring, as concomitant use of opioids with other [employer] depressants can increase risk of respiratory depression and sedation. The use of cyclobenzaprine with Butrans also carries risk of serotonin syndrome given that certain muscle relaxants affect the serotonergic neurotransmitter system. Wound infection risk: Chronic wounds have infection prevalence ranging from 32% to 58%. While patient does not currently demonstrate systemic signs of infection, close monitoring is warranted. Increased pain can be a useful symptom for identifying infected ulcers. Patient should be monitored for development of fever, expanding erythema, or worsening drainage that would indicate progression to systemic infection requiring antibiotic therapy. Fall risk: Patient has history of recent fall and is on multiple medications that increase fall risk, including opioids (Butrans), gabapentin, and cyclobenzaprine, all of which are potentially sedating. Older adults and patients on [employer]-active medications require careful assessment of fall risk and medication review. Medical Decision Making: After comprehensive evaluation, patient does not demonstrate evidence of acute infection requiring hospital admission or new structural injury requiring orthopedic intervention. Chronic knee and hip pain appear to represent exacerbation of underlying chronic pain condition, possibly related to recent fall. Wound drainage does not currently show signs of systemic infection but requires close outpatient follow-up. Disposition: Discharge to [facility] with close follow-up. Discharge Instructions: Continue current medications as prescribed Wound care: Keep wound clean and dry; monitor for signs of infection including increased redness, warmth, swelling, purulent drainage, or fever Return precautions: Return to ED or seek immediate medical attention for fever, chills, inability to bear weight, severe worsening of pain, expanding redness around wound, or any new concerning symptoms Follow-up with primary care provider within 3-5 days for wound reassessment and ongoing pain management Fall prevention: Ensure safe environment at rehabilitation center; consider physical therapy evaluation for gait and balance assessment Pain management: Continue current regimen; avoid adding additional [employer] depressants without physician consultation given drug interaction risks Complexity Level: This encounter represents moderate complexity medical decision making based on: (1) multiple chronic conditions with acute exacerbation, (2) review of physical examination findings and wound assessment, and moderate risk related to chronic pain medication management with potential drug interactions and wound infection monitoring requirements. General Diff Dx:Considerations: Include: Abrasion, Contusion, Fracture, Hematoma, Laceration, Malunion, Neurovascular injury, Open fracture, Sprain, Ulcer, Other Knee Diff Dx:Considerations: Include: Abrasion, Arthritis, Contusion, DJD, Fracture-femur, Fracture-fibula, Fracture-patella, Fracture-tibia, Gout, Hematoma, Laceration, Meniscus injury, Neurovascular injury, Open fracture, Rheumatoid arthritis, Septic, Sprain, Sprain-MCL, Sprain-LCL, Sprain-ACL, Sprain-PCL, Other Ankle Diff Dx:Considerations: Include: Abrasion, Arthritis, Contusion, DJD, Fracture-metatarsal, Fracture-fibula, Fracture-tarsal, Fracture-tibia, Gout, Hematoma, Laceration, Malunion, Neurovascular injury, Nonunion, Open fracture, Osteomyelitis, Rheumatoid arthritis, Sprain, Septic, Ulcer, Other Foot Diff Dx:Considerations: Include: Abrasion, Arthritis, Cellulitis, Contusion, Dislocation, DJD, Fracture-metatarsal, Fracture-phalynx, Fracture- tarsal, Gout, Hematoma, Ingrown toenail, Laceration, Malunion, Neurovascular injury, Open fracture, Paronychia, Puncture, Rheumatoid, Sprain, Septic, Subungual hematoma, Ulcer, Other Toe Diff Dx:Considerations: Include: Abrasion, Cellulitis, Contusion, Dislocation, Felon, Fracture, Hematoma, Laceration, Neurovascular injury, Open fracture, Paronychia, Subungual hematoma, Other Departure Disposition: 01 HOME / SELF CARE / HOMELESS Impression: Primary Impression: Physically well but worried Condition: Stable Discharge Instructions: [facility]ICE Therapy for Routine Care of Injuries, [id number] Additional Instructions: [facility] DISCHARGE INSTRUCTIONS Patient Name: [Patient Name] Date of Discharge: [Date] Emergency Department Visit For: Left knee pain, left hip pain, and wound drainage Why You Came to the Emergency Department You came to the emergency department today because of pain in your left knee and left hip, and drainage from a wound on your left side. We checked you carefully with blood tests and X-rays. The good news is that we did not find any new infection or new injury. Your pain appears to be related to your ongoing (chronic) conditions, possibly made worse by your fall about a week ago. Your Medications - IMPORTANT Continue taking all of your current medications exactly as prescribed: Doxepin 10 mg - Take 2 capsules every evening Gabapentin 300 mg - Take 1 capsule three times daily Cyclobenzaprine 10 mg - Take as needed for pain or discomfort Levetiracetam 750 mg - Take as prescribed Butrans patch (25 mcg total) - Apply one patch once every week Do not stop or change any of these medications without talking to your doctor first. Important Safety Information: These medications can make you sleepy or dizzy. Be careful when walking or moving around to prevent falls. Do not drink alcohol while taking these medications. Do not drive or operate machinery if you feel sleepy or dizzy. Taking Care of Your Wound Your wound on your left side needs careful attention: Daily Wound Care: Keep the wound clean and dry Change bandages as instructed by your rehabilitation center staff Wash your hands before and after touching the wound area Watch for Signs of Infection - Call Your Doctor or Return to the Emergency Department If You Notice: Increased redness or red streaks spreading from the wound Increased warmth around the wound More drainage or pus (thick, yellow, or green fluid) Foul smell from the wound Increased pain or swelling around the wound Fever (temperature over 100.4F or 38C) Managing Your Knee and Hip Pain Continue your current pain medications as prescribed You may use ice packs on your knee for 15-20 minutes at a time to help with pain and swelling Rest when needed, but try to stay as active as you safely can Use any walking aids (cane, walker) that you normally use When to Get Help Right Away Call 911 or return to the emergency department immediately if you have: Fever or chills Inability to put weight on your leg or walk Severe worsening of your pain that does not improve with your medications Redness spreading rapidly from your wound Confusion or difficulty thinking clearly Chest pain or trouble breathing Any new symptoms that worry you Call your primary care doctor if you have: Gradual worsening of your knee or hip pain Increased drainage from your wound (even without other signs of infection) Questions about your medications Any other concerns Follow-Up Care - VERY IMPORTANT You need to see your primary care doctor within 3-5 days to check on your wound and pain. The staff at [facility] will help you schedule this appointment. If you do not have an appointment scheduled within 3 days, please call your doctor's office. At your follow-up visit, your doctor will: Check your wound for signs of infection Review your pain medications Make sure your knee and hip pain is not getting worse Decide if you need any additional treatment Activity and Daily Routine You may continue your normal activities at the rehabilitation center Be extra careful when walking to prevent another fall Ask for help if you feel unsteady Use handrails and walking aids as needed Questions? If you have questions about these instructions or your care, please contact: Your primary care doctor The nursing staff at [facility] Return to the emergency department if you cannot reach your doctor and have conc erning symptoms Remember: It is always better to call or come back if you are worried about your health. We are here to help you. Important Reminders: Take all medications as prescribed Watch your wound daily for signs of infection See your primary care doctor within 3-5 days Return to the emergency department if your symptoms get worse or you develop new concerning symptoms Ask for help to prevent falls Referrals: NO PRIMARY CARE PROVIDER (PCP) Education Educated: Patient Educated regarding: diagnosis, treatment, need for follow up Signature Scribe Signature: A Attestation: Scribed for Claudia Donohue by EDWIN Bejarano . 09/28/25 17:23 CLAUDIA DONOHUE Sep 28, 2025 17:17
[2025-09-28 17:57] VITALS: BP 132/78; PULSE 87; RESP 18; TEMP 99.5; O2SAT 99
== END 2025-09-28 17:58 | disposition home or self-care (01) ==
LOC: ER 13:51
DX: M25.562 Pain in left knee (principal); M25.552 Pain in left hip; F12.90 Cannabis use, unspecified, uncomplicated; F10.10 Alcohol abuse, uncomplicated; G89.29 Other chronic pain; Z79.899 Other long term (current) drug therapy; Z98.890 Other specified postprocedural states; Y90.9 Presence of alcohol in blood, level not specified
CPT/HCPCS: 36415; 73502; 73564; 80053; 80305; 81001; 85008; 85025; 99284